=== PATIENT | male | born 1950 | race Caucasian/White ===

== ENCOUNTER → 2016-08-10 | Outpatient (CLI) | payer BC, OTHER ==
[2016-08-10 08:29] LABS: CHLORIDE,CL 106 mmol/L (98-110); SODIUM,NA 141 mmol/L (136-146)
== END ==
LOC: MW.CHFP 07:33
PROVIDERS: ATTEND Emergency Medicine
DX: Z12.5 Encounter for screening for malignant neoplasm of prostate (principal); I10 Essential (primary) hypertension; R73.9 Hyperglycemia, unspecified
CPT/HCPCS: 36415; 80048; 80061; 83036; G0103

== ENCOUNTER 2017-05-23 08:39 | Day surgery (SDC) | payer MEDICARE, BC ==
[~2017-05-23 08:39] MED LIST: Lactated Ringers 1,000 ML IV SCH; Sodium Chloride 0.9% 10 ML Syringe FLUSH PRN; Sodium Chloride 0.9% 2.5 ML Syringe FLUSH PRN
[2017-05-23] MEDS ORDERED: Lidocaine 2% 5 ML SDV ONE (08:44)
[2017-05-23] MEDS ORDERED: Propofol 200 MG/20 ML SDV ONE (08:44)
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
[2017-05-23] MEDS ORDERED: Glycopyrrolate 0.2 MG/ML SDV ONE (10:28)
--- NOTE | 2017-05-23 10:46 | PCM.OPNOTE ---
- General Post-Op/Procedure Note Date of Surgery/Procedure: 05/23/17 Operative Procedure(s): Colonoscopy Findings: Rectal polyp Pre Op Diagnosis: Family history of colon cancer Post-Op Diagnosis: rectal polyp Anesthesia Technique: MAC Primary Surgeon: Sofie Penaloza Condition: Good
--- NOTE | 2017-05-24 20:42 | OR ---
SURGEON: SOFIE PENALOZA MD DATE OF PROCEDURE: 05/23/2017 PREOPERATIVE DIAGNOSIS: Family history of colon cancer. POSTOPERATIVE DIAGNOSIS: Rectal polyp. PROCEDURE PERFORMED: Screening colonoscopy. ENDOSCOPIST: Sofie Penaloza M.D. ANESTHESIA: MAC. INSTRUMENT USED: Olympus colonoscope. EXTENT OF EXAM: To the cecum. PREPARATION: Good. LIMITATIONS: None. INDICATION FOR EXAMINATION: The patient is a 67-year-old male with a family history of colon cancer. The patient and I discussed the need for a colonoscopy. We discussed the procedure, expected perioperative course, and risks including bleeding, infection, or damage to surrounding structures including perforation. The patient verbalized understanding and wishes to proceed. PROCEDURE IN DETAIL: The patient was brought into the endoscopy suite and placed in the left lateral decubitus position. A time-out was completed verifying the patient's name, age, date of , allergies, and procedure to be performed. Monitored anesthesia care was induced and continuous oxygen was provided via nasal cannula throughout the procedure. After adequate sedation was achieved, digital rectal exam was performed. This exam was within normal limits. A well lubricated colonoscope was inserted in the rectum and advanced under direct visualization to the level of the cecum. Cecum was identified by both visual and anatomic landmarks. A photograph was taken of the cecal cap as well as with the scope retroflexed within the cecum. The scope was then straightened out and fully withdrawn while examining the color, texture, anatomy, and integrity of the mucosa from the cecum to the anal canal. The patient was found to have a rectal polyp. This was removed using a cold biopsy forceps. The scope was then retroflexed within the rectum to allow visualization of the anal canal opening. This appeared normal and a photograph was taken. The scope was then straightened out and removed from the patient. The cecum to anus time was over 6 minutes. The patient tolerated the procedure well and was taken to PACU in stable condition. ENDOSCOPIC DIAGNOSIS: Rectal polyp. RECOMMENDATIONS: Follow up in clinic in 2 weeks. JEFF BUTLER /[id number]
== END 2017-05-23 11:30 | disposition home or self-care (01) ==
LOC: MW.SDS 08:39
PROVIDERS: ATTEND Surgery
DX: Z12.11 Encounter for screening for malignant neoplasm of colon (principal); K62.1 Rectal polyp; Z80.0 Family history of malignant neoplasm of digestive organs
CPT/HCPCS: 45380; J7120; 00810; 88305; J2704

== ENCOUNTER 2021-08-22 22:49 | Emergency (ER) | payer MEDICARE, BC ==
[2021-08-22] MEDS ORDERED: Aspirin 81 MG Tab.Chew PO ONE (22:59)
[2021-08-22 23:31] LABS: BLOOD UREA NITROGEN,BUN 20 mg/dL (7.0-18.0); CARBON DIOXIDE,CO2 24.9 mmol/L (21.0-32.0); CHLORIDE,CL 105 mmol/L (98-107); ESTIMATED GFR > 60.0 ml/min; GLUCOSE RANDOM 110 mg/dL (74-106); POTASSIUM,K 3.8 mmol/L (3.5-5.1); SODIUM,NA 141 mmol/L (136-148)
== END 2021-08-23 00:07 | disposition home or self-care (01) ==
LOC: MW.ED 22:49
DX: R07.89 Other chest pain (principal); I10 Essential (primary) hypertension; E66.9 Obesity, unspecified; Z68.30 Body mass index [BMI] 30.0-30.9, adult; Z88.1 Allergy status to other antibiotic agents; Z79.899 Other long term (current) drug therapy; I51.7 Cardiomegaly
CPT/HCPCS: 36415; 71045; 80053; 83735; 84484; 85025; 93005; 93306; 99285; A9270; 93010; 99284

== ENCOUNTER → 2021-09-08 | Day surgery (SDC) | payer MEDICARE, BC ==
[~2021-09-08] MED LIST changes: +Lidocaine 2% 5 ML SDV ONE; +Propofol 200 MG/20 ML SDV ONE; -Sodium Chloride 0.9% 10 ML Syringe FLUSH PRN; -Sodium Chloride 0.9% 2.5 ML Syringe FLUSH PRN; +fentaNYL 100 MCG/2 ML SDV ONE
== END | disposition home or self-care (01) ==
LOC: MW.SDS 10:53
PROVIDERS: ATTEND Surgery
DX: K57.30 Diverticulosis of large intestine without perforation or abscess without bleeding (principal); K29.50 Unspecified chronic gastritis without bleeding; K20.90 Esophagitis, unspecified without bleeding; N40.0 Benign prostatic hyperplasia without lower urinary tract symptoms; I48.19 Other persistent atrial fibrillation; I10 Essential (primary) hypertension; E78.00 Pure hypercholesterolemia, unspecified; R07.89 Other chest pain; G47.30 Sleep apnea, unspecified; E66.9 Obesity, unspecified; Z68.31 Body mass index [BMI] 31.0-31.9, adult; Z88.1 Allergy status to other antibiotic agents; Z79.84 Long term (current) use of oral hypoglycemic drugs; Z79.899 Other long term (current) drug therapy; Z98.890 Other specified postprocedural states; Z87.891 Personal history of nicotine dependence; Z80.8 Family history of malignant neoplasm of other organs or systems; Z80.3 Family history of malignant neoplasm of breast; Z80.0 Family history of malignant neoplasm of digestive organs; Z86.010 Personal history of colon polyps
CPT/HCPCS: 43239; 45378; J2704; J3010; J7120; 00813

== ENCOUNTER 2022-02-06 04:00 | Observation (INO) | payer MEDICARE, BC ==
[2022-02-06] MEDS ORDERED: Aspirin 81 MG Tab.Chew PO ONE (04:15)
[2022-02-06 04:56] LABS: CORONAVIRUS COVID-19 NAA NEGATIVE (NEGATIVE); INFLUENZA A NAA NEGATIVE (NEGATIVE); INFLUENZA B NAA NEGATIVE (NEGATIVE)
[2022-02-06 06:01] LABS: CARBON DIOXIDE,CO2 20.6 mmol/L (21.0-32.0); POTASSIUM,K 3.8 mmol/L (3.5-5.1)
[2022-02-06] MEDS ORDERED: Iopamidol 755 MG/ML 500 ML Multipack Bottle IVPUSH STA (06:39)
[2022-02-06] MEDS ORDERED: cefTRIAXone 1 GM in Sodium Chloride 0.9% 50 ML IV ONE (08:16)
[2022-02-06] MEDS ORDERED: Azithromycin 500 MG in Sodium Chloride 0.9% 250 ML IV ONE (08:16)
[2022-02-06] MEDS ORDERED: Furosemide 20 MG/2 ML VIAL IVPUSH ONE ×2 (08:16→09:42)
[2022-02-06] MEDS ORDERED: Sodium Chloride 0.9% 10 ML Syringe FLUSH PRN (09:18)
[2022-02-06] MEDS ORDERED: Sodium Chloride 0.9% 2.5 ML Syringe FLUSH PRN (09:18)
[2022-02-06] MEDS ORDERED: Ondansetron 4 MG/2 ML SDV IVPUSH PRN (09:18)
[2022-02-06] MEDS ORDERED: Acetaminophen 325 MG Tab PO PRN (09:18)
[2022-02-06] MEDS ORDERED: Albuterol/Ipratropium 3.0-0.5 MG/3 ML Neb Soln NEB PRN (09:18)
[2022-02-06] MEDS ORDERED: Tamsulosin 0.4 MG Cap.ER PO SCH ×2 (10:30→21:00)
[2022-02-06] MEDS ORDERED: Fluticasone NASAL Spray 16 GM Bottle NASBOTH PRN (10:30)
[2022-02-06] MEDS ORDERED: Finasteride 5 MG Tab PO SCH ×2 (10:30→21:00)
[2022-02-06] MEDS: Losartan 50 MG Tab PO SCH (11:04)
[2022-02-06] MEDS: Apixaban 5 MG Tab PO SCH ×2 (11:04→20:10)
[2022-02-06] MEDS: Furosemide 40 MG/4 ML VIAL IVPUSH SCH (15:16)
[2022-02-07] MEDS: Furosemide 40 MG/4 ML VIAL IVPUSH SCH (04:11)
[2022-02-07 05:59] LABS: POTASSIUM,K 3.7 mmol/L (3.5-5.1)
[2022-02-07] MEDS ORDERED: Diltiazem 25 MG/5 ML SDV IVPUSH ONE (07:33)
[2022-02-07] MEDS ORDERED: Magnesium Sulfate/Water 2 GM in Premix Bag 1 BAG IV ONE (07:48)
[2022-02-07] MEDS ORDERED: Potassium Chloride 20 MEQ Tab.ER PO ONE (07:48)
[2022-02-07] MEDS: Metoprolol Succinate 25 MG Tab.ER PO SCH ×2 (07:51→08:37)
[2022-02-07] MEDS: Losartan 50 MG Tab PO SCH (08:14)
[2022-02-07] MEDS: Apixaban 5 MG Tab PO SCH (08:15)
[2022-02-07] MEDS ORDERED: Folic Acid 1 MG Tab PO SCH (09:00)
[2022-02-07] MEDS ORDERED: LIPASE PO SCH (09:00)
[2022-02-07] MEDS ORDERED: AMYLASE PO SCH (09:00)
[2022-02-07] MEDS ORDERED: Azithromycin 250 MG Tab PO SCH (09:00)
[2022-02-07] MEDS ORDERED: PROTEASE PO SCH (09:00)
[2022-02-07] MEDS ORDERED: cefTRIAXone 1 GM in Sodium Chloride 0.9% 50 ML IV SCH (09:30)
== END 2022-02-07 12:50 | disposition home or self-care (01) ==
LOC: MW.ED 04:00 → MW.MS 08:20
PROVIDERS: ADMIT Internal Medicine; ATTEND Internal Medicine
DX: J18.9 Pneumonia, unspecified organism (principal); E87.70 Fluid overload, unspecified; E66.9 Obesity, unspecified; Z68.30 Body mass index [BMI] 30.0-30.9, adult; Z20.822 Contact with and (suspected) exposure to COVID-19; Z88.1 Allergy status to other antibiotic agents; Z79.01 Long term (current) use of anticoagulants; Z79.899 Other long term (current) drug therapy
CPT/HCPCS: 0240U; 36415; 71045; 71275; 80048; 80053; 83735; 83880; 84484; 85025; 93005; 93306; 96365; 96375; 96376; 99285; A9270; G0378; J0456; J0696; J1642; J1940; J3475; J3490; J7050; Q9967; 93010

== ENCOUNTER 2022-06-19 08:46 | Emergency (ER) | payer MEDICARE, BC ==
[2022-06-19 10:14] LABS: CARBON DIOXIDE,CO2 22.2 mmol/L (21.0-32.0); POTASSIUM,K 4.2 mmol/L (3.5-5.1)
== END 2022-06-19 12:35 | disposition home or self-care (01) ==
LOC: MW.ED 08:46
DX: I11.9 Hypertensive heart disease without heart failure (principal); E66.9 Obesity, unspecified; Z68.30 Body mass index [BMI] 30.0-30.9, adult; Z88.1 Allergy status to other antibiotic agents; Z79.01 Long term (current) use of anticoagulants; Z79.899 Other long term (current) drug therapy
CPT/HCPCS: 36415; 80053; 84484; 85025; 93005; 99283

== ENCOUNTER 2022-09-28 10:21 | Emergency (ER) | payer MEDICARE, BC ==
[2022-09-28] MEDS ORDERED: Sodium Chloride 0.9% 10 ML Syringe FLUSH PRN (10:35)
[2022-09-28] MEDS ORDERED: Sodium Chloride 0.9% 2.5 ML Syringe FLUSH PRN (10:35)
[2022-09-28 11:09] LABS: CARBON DIOXIDE,CO2 20.9 mmol/L (21.0-32.0); POTASSIUM,K 4.4 mmol/L (3.5-5.1)
[2022-09-28 11:39] LABS: CORONAVIRUS COVID-19 NAA NEGATIVE (NEGATIVE); INFLUENZA A NAA NEGATIVE (NEGATIVE); INFLUENZA B NAA NEGATIVE (NEGATIVE); RESPIRATORY SYNCYTIAL VIR NAA NEGATIVE (NEGATIVE)
[2022-09-28] MEDS ORDERED: Furosemide 40 MG/4 ML VIAL IVPUSH ONE (11:49)
[2022-09-28] MEDS ORDERED: Iopamidol 755 MG/ML 500 ML Multipack Bottle IVPUSH ONE (12:11)
[2022-09-28] MEDS ORDERED: Heparin Sodium 100 Units/ML 3 ML Syringe FLUSH STA (14:32)
== END 2022-09-28 15:01 | disposition home or self-care (01) ==
LOC: MW.ED 10:21
DX: I11.0 Hypertensive heart disease with heart failure (principal); I50.9 Heart failure, unspecified; I48.91 Unspecified atrial fibrillation; M10.9 Gout, unspecified; M19.90 Unspecified osteoarthritis, unspecified site; N40.0 Benign prostatic hyperplasia without lower urinary tract symptoms; Z79.01 Long term (current) use of anticoagulants; Z88.1 Allergy status to other antibiotic agents; Z79.899 Other long term (current) drug therapy; Z20.822 Contact with and (suspected) exposure to COVID-19
CPT/HCPCS: 0241U; 36415; 71045; 71275; 80053; 81001; 83880; 84484; 85025; 85379; 93005; 96374; 99285; J1642; J1940; J3490; Q9967; 93010; 99284

== ENCOUNTER 2023-03-20 13:00 | Emergency (ER) | payer MEDICARE, BC ==
[2023-03-20] MEDS ORDERED: Sodium Chloride 0.9% 2.5 ML Syringe FLUSH PRN (13:12)
[2023-03-20] MEDS ORDERED: Sodium Chloride 0.9% 10 ML Syringe FLUSH PRN (13:12)
[2023-03-20 14:00] LABS: BASOPHILS ABSOLUTE AUTO 0.06 K/uL (0.00-0.20); BASOPHILS PERCENT AUTO 0.5 % (0.0-1.0); EOSINOPHILS ABSOLUTE AUTO 0.33 K/uL (0.00-0.45); HEMOGLOBIN 9.3 g/dL (14.0-18.0); IMMATURE GRAN ABSOLUTE AUTO 0.05 K/uL (0.00-0.05); IMMATURE GRAN PERCENT AUTO 0.5 % (0.0-0.4); LYMPHOCYTES ABSOLUTE AUTO 0.67 K/uL (1.00-4.80); MEAN CORPUSCULAR HEMOGLOBIN 33.9 pg (28.0-32.0); MEAN CORPUSCULAR HGB CONC 34.4 g/dL (32.0-36.0); MEAN CORPUSCULAR VOLUME 98.5 fL (83.0-99.0); MEAN PLATELET VOLUME 10.7 fL (9.4-12.4); MONOCYTES ABSOLUTE AUTO 1.38 K/uL (0.00-0.80); MONOCYTES PERCENT AUTO 12.4 % (0.0-8.0); NEUTROPHILS ABSOLUTE AUTO 8.6 K/uL (1.8-7.7); NEUTROPHILS PERCENT AUTO 77.6 % (41.0-71.0); PLATELET COUNT,PLT 205 K/uL (150-400); RED BLOOD CELL COUNT 2.74 M/uL (4.52-5.90); WHITE BLOOD CELL COUNT,WBC 11.11 K/uL (3.9-11.3)
[2023-03-20 14:20] LABS: ALBUMIN 2.7 g/dL (3.4-5.0); BILIRUBIN TOTAL 0.7 mg/dL (0.2-1.0); CALCIUM 8.2 mg/dL (8.5-10.1); CARBON DIOXIDE,CO2 22.8 mmol/L (21.0-32.0); CREATININE 2.5 mg/dL (0.8-1.3); EST CRCL DRUG DOSING (CG) 26.6 mL/min; POTASSIUM,K 4.1 mmol/L (3.5-5.1); PROTEIN TOTAL,TP 5.4 g/dL (6.4-8.2)
[2023-03-20 14:25] LABS: MAGNESIUM 1.9 mg/dL (1.8-2.4)
[2023-03-20 14:50] LABS: CORONAVIRUS COVID-19 NAA NEGATIVE (NEGATIVE); INFLUENZA A NAA NEGATIVE (NEGATIVE); INFLUENZA B NAA NEGATIVE (NEGATIVE)
[2023-03-20 15:23] LABS: APPEARANCE,URINE CLEAR; BILIRUBIN,URINE NEGATIVE (NEGATIVE); COLOR,URINE YELLOW; GLUCOSE,URINE NEGATIVE (NEGATIVE); KETONES,URINE NEGATIVE (NEGATIVE); LEUKOCYTE ESTERASE,URINE NEGATIVE (NEGATIVE); NITRITE,URINE NEGATIVE (NEGATIVE); OCCULT BLOOD,URINE NEGATIVE (NEGATIVE); PROTEIN,URINE 30 mg/dL (NEGATIVE); UROBILINOGEN,URINE 0.2 EU/dL (<2.0)
[2023-03-20 15:30] LABS: BACTERIA,URINE NOT SEEN (NEGATIVE); EPITHELIAL CELLS,URINE RARE (NONE-FEW); RBC,URINE 0-2 (0-2/HPF); WBC,URINE 0-1 (0-5/HPF)
== END 2023-03-20 18:19 ==
LOC: MW.ED 13:00
DX: I21.4 Non-ST elevation (NSTEMI) myocardial infarction (principal); K92.1 Melena; C25.1 Malignant neoplasm of body of pancreas; C79.89 Secondary malignant neoplasm of other specified sites; I48.91 Unspecified atrial fibrillation; E78.00 Pure hypercholesterolemia, unspecified; I10 Essential (primary) hypertension; E66.9 Obesity, unspecified; Z20.822 Contact with and (suspected) exposure to COVID-19; Z79.01 Long term (current) use of anticoagulants; Z79.899 Other long term (current) drug therapy; Z88.1 Allergy status to other antibiotic agents
CPT/HCPCS: 0240U; 36415; 71046; 74176; 80053; 81001; 83690; 83735; 83880; 84484; 85025; 86850; 86900; 86901; 93005; 99285; J3490; 93010

== ENCOUNTER 2023-04-26 11:09 | Inpatient (IN) | payer MEDICARE, BC ==
[2023-04-26] MEDS ORDERED: Haloperidol Lactate 2 MG/ML Oral Soln 15 ML Bottle SL SCH (12:00)
[2023-04-26] MEDS ORDERED: Morphine 10 MG/0.5 ML Oral Syringe SL SCH (12:00)
[2023-04-26] MEDS ORDERED: Acetaminophen 650 MG Supp RECTAL PRN (13:18)
[2023-04-26] MEDS ORDERED: Hyoscyamine 0.125 MG Tab.SL SL PRN (13:21)
[2023-04-26] MEDS ORDERED: Bisacodyl 10 MG Supp RECTAL PRN (13:21)
[2023-04-26] MEDS ORDERED: LORazepam 0.5 MG Tab PO PRN (13:23)
[2023-04-26] MEDS ORDERED: Ondansetron 4 MG Tab.DIS PO PRN (13:24)
[2023-04-26] MEDS: Morphine 10 MG/0.5 ML Oral Syringe PO PRN ×2 (14:03→22:09)
[2023-04-26] MEDS: Haloperidol Lactate 2 MG/ML Oral Soln 15 ML Bottle SL PRN ×2 (14:11→22:03)
[2023-04-26] MEDS: Morphine 10 MG/0.5 ML Oral Syringe SL SCH ×2 (16:22→20:04)
[2023-04-26] MEDS: Haloperidol Lactate 2 MG/ML Oral Soln 15 ML Bottle SL SCH ×2 (16:23→20:27)
[2023-04-27] MEDS: Haloperidol Lactate 2 MG/ML Oral Soln 15 ML Bottle SL SCH ×5 (00:07→15:59)
[2023-04-27] MEDS: Morphine 10 MG/0.5 ML Oral Syringe SL SCH ×5 (00:08→15:58)
[2023-04-27] MEDS: Haloperidol Lactate 2 MG/ML Oral Soln 15 ML Bottle SL PRN (02:03)
[2023-04-27] MEDS: Morphine 10 MG/0.5 ML Oral Syringe PO PRN (02:07)
[2023-04-27] MEDS ORDERED: Dexamethasone 4 MG Tab PO SCH (09:00)
== END 2023-04-27 22:30 | disposition expired | DRG 951 ==
LOC: MW.MS 11:09
PROVIDERS: ADMIT Internal Medicine; ATTEND Internal Medicine
DX: Z51.5 Encounter for palliative care (principal); C25.9 Malignant neoplasm of pancreas, unspecified; Z75.5 Holiday relief care; Z66 Do not resuscitate
CPT/HCPCS: A9270-GY; J3490; J8540